=== PATIENT | female | born 1980 | race Caucasian/White ===

== ENCOUNTER 2017-04-17 10:09 | Emergency (ER) | payer MEDICAID ==
[~2017-04-17] VITALS: Ht 167.6 cm; Wt 73.6 kg
[~2017-04-17 10:09] MED LIST: MACRODANTIN100 PO; MOTRIN 600600 MG/TAB PO; PERCOCET 325 MG1 TA2 PO; PRENATAL1 TA1 PO; ZANTAC 150MG T150 MG PO
[2017-04-17 10:23] VITALS: TEMP 98.7
[2017-04-17 11:09] LABS: PH 5 (5-8); URINE APPEARANCE Hazy; URINE BACTERIA None Seen /hpf; URINE BILIRUBIN Negative (NEGATIVE); URINE BLOOD Negative (NEGATIVE); URINE COLOR Yellow; URINE GLUCOSE Negative (NEGATIVE); URINE KETONE Negative (NEGATIVE); URINE RBC 0-2 /hpf; URINE UROBILINOGEN Negative (NEGATIVE); URINE WBC 0-2 /hpf
[2017-04-17 11:23] LABS: BASO # 0.1 (0.0-0.2); BASO % 0.8 % (0.0-2.0); EOS # 0.2 (0.0-0.7); EOS % 2.4 % (0-4.0); GRAN # 4.6 (1.4-6.5); GRAN % 58.5 % (42.2-75.2); LYMPH # 2.4 (1.2-3.4); LYMPH % 29.8 % (20.0-51.0); MEAN CELL VOLUME 60 fl (80.0-100.0); MEAN CORPUSCULAR HGB CONC 28 g/dl (33.0-37.0); MONO # 0.7 (0.1-0.6); MONO % 8.2 % (1.7-9.3); PLATELET COUNT 309 K/mm3 (130-400); RED BLOOD COUNT 4.75 M/mm3 (4.10-5.30); REDCELL DISTRIBUTION WIDTH-CV 21.6 % (11.5-14.5); WHITE BLOOD COUNT 7.9 K/mm3 (4.8-10.8)
[2017-04-17 11:25] LABS: HEMATOCRIT 28.6 % (37.0-47.0); HEMOGLOBIN 7.9 g/dl (12.5-16.0); MEAN CORPUSCULAR HEMOGLOBIN 17 pg (27.0-31.0)
[2017-04-17 11:26] LABS: ADJUSTED CALCIUM 8.9 mg/dL (8.4-10.2); ALANINE AMINOTRANSFERASE 42 U/L (9-52); ALBUMIN 4.5 gm/dL (3.5-5.0); ALKALINE PHOSPHATASE 68 U/L (50-136); ANION GAP 10 mmol/L (7-16); BILIRUBIN,TOTAL 0.6 mg/dL (0.0-1.0); BLOOD UREA NITROGEN 18 mg/dL (7-17); C-REACTIVE PROTEIN < 0.5 mg/dL (0.0-0.9); CALCIUM 9.3 mg/dL (8.4-10.2); CARBON DIOXIDE 22 mmol/L (22-30); CHLORIDE 106 mmol/L (98-107); CREATININE, serum 0.68 mg/dL (0.52-1.25); GLUCOSE 92 mg/dL (74-106); LIPASE 82 U/L (23-300); POTASSIUM 4.5 mmol/L (3.4-5.0); SODIUM 138 mmol/L (137-145); TOTAL PROTEIN 7.9 gm/dL (6.4-8.2)
[2017-04-17] MEDS ORDERED: FERROUS SU325 MG/TAB PO (11:35)
[2017-04-17] MEDS ORDERED: ZOFRAN 4MG T4 MG/TAB PO (13:14)
[2017-04-17] MEDS ORDERED: NORCO 325 MG-51 TAB PO (13:14)
[2017-04-17] MEDS ORDERED: CEFTIN500 MG PO (13:14)
[2017-04-17 13:30] VITALS: BP 105/70; PULSE 64
== END 2017-04-17 13:32 | disposition home or self-care (01) ==
LOC: COL.ER 10:09
PROVIDERS: Emergency Medicine
DX: D64.9 Anemia, unspecified (principal); N20.0 Calculus of kidney
CPT/HCPCS: J7030; Q9967

== ENCOUNTER → 2017-05-22 | Outpatient (CLI) | payer MEDICAID ==
[~2017-05-22] MED LIST changes: +CEFTIN500 MG PO; +FERROUS SU325 MG/TAB PO; +NORCO 325 MG-51 TAB PO; +ZOFRAN 4MG T4 MG/TAB PO
== END ==
LOC: COL.RAD 12:11
DX: J84.10 Pulmonary fibrosis, unspecified (principal); Z98.82 Breast implant status; F17.200 Nicotine dependence, unspecified, uncomplicated

== ENCOUNTER 2017-10-22 13:18 | Day surgery (SDC) | payer MEDICAID ==
[2017-10-22] VITALS (7 sets, daily range): BP systolic 100–107; BP diastolic 58–75; PULSE 57–80; TEMP 98–98.8
[~2017-10-22] VITALS: Ht 167.6 cm; Wt 92.5 kg
[2017-10-22] MEDS ORDERED: FERRETTS I40 MG/15 M PO (13:33)
[2017-10-22 13:50] LABS: COLLECTION METHOD CLEAN CATCH
[2017-10-22 14:04] LABS: MUCOUS Present /lpf; PH 7 (5-8); URINE APPEARANCE Hazy; URINE BACTERIA None Seen /hpf; URINE BILIRUBIN Negative (NEGATIVE); URINE BLOOD Negative (NEGATIVE); URINE COLOR Amber; URINE GLUCOSE Negative (NEGATIVE); URINE KETONE Negative (NEGATIVE); URINE LEUKOCYTE ESTERASE Negative (NEGATIVE); URINE NITRATE Negative (NEGATIVE); URINE PROTEIN(semi-quant) 1+ (NEGATIVE); URINE RBC 0-2 /hpf; URINE UROBILINOGEN >=4.0 mg/dL (NEGATIVE)
[2017-10-22 14:39] LABS: BASO # 0.1 (0.0-0.2); BASO % 0.5 % (0.0-2.0); EOS # 0.2 (0.0-0.7); EOS % 1.5 % (0-4.0); GRAN # 7.3 (1.4-6.5); GRAN % 73.6 % (42.2-75.2); LYMPH # 1.7 (1.2-3.4); LYMPH % 16.6 % (20.0-51.0); MEAN CELL VOLUME 66 fl (80.0-100.0); MEAN CORPUSCULAR HGB CONC 30 g/dl (33.0-37.0); MEAN PLATELET VOLUME 10.7 fl (7.4-10.4); MONO # 0.7 (0.1-0.6); MONO % 7.4 % (1.7-9.3); PLATELET COUNT 343 K/mm3 (130-400); RED BLOOD COUNT 4.69 M/mm3 (4.10-5.30); REDCELL DISTRIBUTION WIDTH-CV 18.6 % (11.5-14.5)
[2017-10-22 14:41] LABS: HEMATOCRIT 30.9 % (37.0-47.0); HEMOGLOBIN 9.2 g/dl (12.5-16.0); MEAN CORPUSCULAR HEMOGLOBIN 20 pg (27.0-31.0)
[2017-10-22 15:05] LABS: ALANINE AMINOTRANSFERASE 653 U/L (9-52); ALBUMIN 3.8 gm/dL (3.5-5.0); ALKALINE PHOSPHATASE 194 U/L (50-136); ANION GAP 10 mmol/L (7-16); BLOOD UREA NITROGEN 13 mg/dL (7-17); CALCIUM 8.9 mg/dL (8.4-10.2); CARBON DIOXIDE 25 mmol/L (22-30); CHLORIDE 106 mmol/L (98-107); CREATININE, serum 0.75 mg/dL (0.52-1.25); GLUCOSE 95 mg/dL (74-106); LIPASE 154 U/L (23-300); POTASSIUM 4.1 mmol/L (3.4-5.0); SODIUM 141 mmol/L (137-145); TOTAL PROTEIN 7.7 gm/dL (6.4-8.2)
[2017-10-22 15:09] LABS: AST,SGOT 804 U/L (15-37)
[2017-10-22 15:15] LABS: C-REACTIVE PROTEIN < 0.5 mg/dL (0.0-0.9)
[2017-10-23 00:36] VITALS: BP 106/71; PULSE 79
[2017-10-23 04:26] VITALS: BP 120/46; PULSE 107; TEMP 98
[2017-10-23 04:57] VITALS: PULSE 78
[2017-10-23 09:37] VITALS: BP 108/63; PULSE 78; TEMP 98.2
[2017-10-23 13:07] VITALS: BP 104/59; PULSE 72; TEMP 98.6
== END 2017-10-23 15:42 | disposition home or self-care (01) ==
LOC: COL.ER 13:18 → JCC 17:34 → SDCO 17:34
PROVIDERS: Emergency Medicine
DX: K80.10 Calculus of gallbladder with chronic cholecystitis without obstruction (principal); F17.290 Nicotine dependence, other tobacco product, uncomplicated; Z88.5 Allergy status to narcotic agent; D64.9 Anemia, unspecified
CPT/HCPCS: OP; J1100; J1170; J1885; J1956; J2405; J2704; J2710; J2765; J3010; J7030; Q9967

== ENCOUNTER 2023-03-26 15:30 | Outpatient (RCR) | payer MEDICAID ==
[2023-03-20 14:43] VITALS: BP 108/67; PULSE 74; TEMP 98.5
[2023-03-24 16:11] VITALS: BP 96/60; PULSE 72; TEMP 98.3
[~2023-03-26] VITALS: Ht 167.6 cm; Wt 74.8 kg
[2023-03-26 14:27] VITALS: BP 113/71; PULSE 81; TEMP 98.8
[~2023-03-26 15:30] MED LIST changes: +DESYREL 50MG50 MG PO; +FERRETTS I40 MG/15 M PO; +LO LOESTRIN FE1 TAB PO
--- NOTE | 2023-03-26 16:09 | NUR ---
Pt tolerated infusion without issue. IV Dc'd, site wrapped with coban. She exits dept with steady gait. Free of complaints at time of discharge.
== END 2023-03-26 16:10 | disposition home or self-care (01) ==
LOC: EUO 15:30
DX: Z79.899 Other long term (current) drug therapy (principal)
CPT/HCPCS: J1756; J7050

== ENCOUNTER 2023-08-04 10:46 | Outpatient (RCR) | payer MEDICAID | END 2023-08-05 | disposition home or self-care (01) | LOC: WSPT | DX: M25.511 Pain in right shoulder (principal) ==

== ENCOUNTER 2023-09-16 00:38 | Emergency (ER) | payer MEDICAID ==
[~2023-09-16] VITALS: Ht 167.6 cm; Wt 75.0 kg
[2023-09-16 00:49] VITALS: TEMP 97.4
[2023-09-16] MEDS ORDERED: Ibuprofen 400 MG TAB PO ONE (01:00)
[2023-09-16] MEDS ORDERED: Acetaminophen 500 MG TAB PO ONE (01:00)
[2023-09-16 01:51] VITALS: BP 126/85; PULSE 80
== END 2023-09-16 01:51 | disposition home or self-care (01) ==
LOC: COL.ER 00:38
DX: H69.92 Unspecified Eustachian tube disorder, left ear (principal)